=== PATIENT | female | born 1995 | race Caucasian/White ===

== ENCOUNTER → 2017-08-28 | Day surgery (SDC) | payer BC ==
[2017-08-22 08:05] VITALS: Ht 177.8 cm; Wt 81.8 kg
[~2017-08-28] VITALS: Ht 177.8 cm; Wt 81.8 kg
[~2017-08-28] MED LIST: AMPH20TA2 PO; ATROPINE SULFATE 0.1 MG/ML 5ML SYR IV PRN; CEFAZOLIN 2000 MG/60 ML D5W IV SCH; DEXAMETHASONE SOD INJ 4 MG/ML VIAL ONE; EpINEphrine HCL INJ 1 MG/ML 5ML SYRINGE ONE; FENTANYL CITRATE INJ 50 MCG/1 ML 2 ML VIAL ONE; HYDROCODONE/ACETAMOPHEN 5/325MG TAB PO PRN; HYDROmorphone INJ 1 MG/ML SYR ONE; KETAMINE HCL INJ 50 MG/ML 10 ML VIAL ONE; KETOROLAC TROMETHAMINE 30 MG/ML VIAL IV. PRN; LACTATED RINGER'S 1000ML 1,000 ML IV SCH; LEVOIUD; LIDOCAINE HCL 2% 2 ML VIAL (20MG/ML) ONE; MIDAZOLAM HCL 1 MG/ML 2ML VIAL ONE; ONDANSETRON INJ 2 MG/ML 2 ML VIAL IV PRN; ONDANSETRON INJ 2 MG/ML 2 ML VIAL ONE; OXYCODONE/ACETAMINOPHEN 5-325 TAB PO PRN; PROMETHAZINE HCL INJ 12.5 MG in SODIUM CHLORIDE 0.9% 50ML 50 ML IV PRN; PROPOFOL IV EMULSION 10 MG/ML 20 ML VIAL IV ONE; ROPIVACAINE 0.5% 5 MG/ML 30 ML VIAL ONE; SODIUM CHLORIDE 0.9% 1000ML 1,000 ML IV SCH
--- NOTE | 2017-08-28 08:29 | History & Physical Bridge Note ---
H&P Re-Evaluation Bridge Note: I have examined the patient, reviewed the History & Physical and in the interval since the performance of the History & Physical I have noted the following changes of clinical significance:consent reviewed. No changes noted
--- NOTE | 2017-08-28 08:30 | Discharge Instructions ---
Discharge Instructions Date of Service Aug 28, 2017. Visit Reason for Visit: Right Knee Acl Graft Tear Discharge Discharge Diagnosis / Problem: same Discharge Goals Goal(s): Decrease discomfort, Improve function, Increase independence Medications Stopped Medications Name(s): any bcp Activity Recommendations Activity Limitations: as noted below Lifting Limitations: until after follow-up appointment Exercise/Sports Limitations: until after follow-up appointment May Resume Sexual Activity: after follow-up appointment Shower/Bathe: keep incision dry Driving or Machine Use: Weightbearing Status: Right partial Anesthesia . Post Anesthesia Instructions: If you have had General Anesthesia or IV Sedation: * Do not drive today. * Resume driving when surgeon permits. * Do not make important decisions or sign legal documents today. * Call surgeon for: 1. Temperature elevations greater than 101 degrees F. 2. Uncontrollable pain. 3. Excessive bleeding. 4. Persistent nausea and vomiting. 5. Medication intolerance (nausea, vomiting or rash). * For nausea and vomiting use only clear liquids such as: tea, soda, bouillon until nausea subsides, then gradually increase diet as tolerated. * If you have any concerns or questions, call your surgeon's office. If physician is unavailable and it is an emergency, call 911 or go to the nearest emergency room. . Instructions / Follow-Up Instructions / Follow-Up The following instructions are a useful guide to questions you may have after your Anterior Cruciate Ligament Reconstruction surgery. If you have any questions contact the office at . ACTIVITY RECOMMENDATIONS: * Heavy manual labor is not permitted until 4-6 months after surgery. * Sports are not permitted until 6-9 months after surgery. * Return to activity is individualized. * DRIVING: Driving is not permitted until 3-4 weeks after surgery at a minimum. Please ask your doctor when it is safe to resume driving. If you have an automatic vehicle and your left leg has been operated on, then you may begin driving as soon as you are comfortable and can drive safely. * BATHING: You may shower or sponge-bathe immediately after surgery. The dressing will need to be covered with a plastic bag or plastic wrap until the dressing is changed on the fourth or fifth day after surgery. Once the dressing has been changed on the fourth or fifth day after surgery, you may shower and get the incision wet. * Wash with regular soap and water. * Do not bathe (submerge the incision), soak, swim or use a hot tub until the incision is completely healed over with normal skin and the doctor has given the OK to proceed. * There is no need to apply any ointments, powders or salves to your incision. * Do not apply alcohol or hydrogen peroxide directly to the incision. Diluted peroxide (50:50 mixture with sterile saline) may be used to clean dried blood from around the incision area. WORK/SCHOOL: * You may return to sedentary work or school when you are feeling comfortable. This is usually 3-7 days after surgery. * Expect increased discomfort with increased activity. Continue to elevate and ice the leg as much as possible. DIET: * Resume previous diet. MEDICATIONS: * You will have a prescription for pain medication and an anti-inflammatory medication after surgery. Use the pain pills for severe pain and the anti-inflammatory for less severe pain. * Once the pain pills have run out, try to use the anti-inflammatory. If this is not effective then contact the office for assistance. * The pain medication may cause nausea, constipation and sleepiness. You should see how they affect you before driving or similar activity. * The anti-inflammatory may cause stomach upset and bleeding. If this occurs, let your doctor know immediately . * Some patients may need blood clot prevention. This can be done with either a pill or a simple shot. Your doctor will advise you on when to begin these medications and how to take them. * Do not take aspirin or other anti-inflammatory products (i.e. Advil or Aleve ) if taking blood thinner medication. * Take a stool softener like Colace or a stimulant like Senokot to prevent constipation. SPECIAL CARE INSTRUCTIONS: The following instructions are a useful guide to questions you may have after your surgery. If you have any questions contact the office at . ICE: * You have the option of an ice cooler, gel packs or ice bags. * If you have an ice cooler, refer to the instructions for that device. * If you do not have an ice cooler, then you will need to use ice bags or gel packs. * Do not apply ice directly to the skin. * Use a thin dressing or stockinet between the skin and ice bag. * Apply ice for 20-30 minutes and repeat every 2-4 hours. This is especially important for the first 7-10 days after surgery. * Once the pain improves, use ice as needed. * The ice cooler can be used continuously. ELEVATION: * Keep your leg elevated at or above the level of your heart as much as possible. * Expect some increased discomfort and swelling if you are standing for any length of time. * When lying down, avoid placing anything under your knee. Rather, prop your leg up by placing several pillows under your heel or calf. DRESSING: * Your dressing will be changed at your first therapy appointment approximately 4-5 days after surgery. * Band-Aids, tape strips or gauze may be applied. You may then change your dressing daily. * Always wash your hands prior to touching the incision area. * Reapply dressing followed by the Darryn wrap or Tubi-automobile taillight assembler stockinet, ice cooling pad and then the brace. * Once the stitches are removed, you may leave the wound open to air or cover with an Darryn Bandage or Tubi-automobile taillight assembler stockinet. * If you have been given a white elastic stocking (AUDIE hose), wear as much as possible for the first 1-3 weeks depending on swelling. * Expect some bloody drainage for the first few days after surgery. * Leave the tape strips in place for 5-7 days. * Band-Aids and gauze may be changed daily. CRUTCHES: * You will need to use crutches after surgery. * Until your first doctor's appointment, you must use your crutches at all times when walking and should put no more than 50% of your normal weight on the surgical leg. * After your first doctor's appointment, you may gradually progress to full weight bearing and discontinue crutches as tolerated under the guidance of your therapist. * If you have had a microfracture procedure done, you may be advised to be non- weight bearing for up to 6 weeks. BRACE: * After surgery, you will be placed into a range of motion brace locked with your leg straight. This brace is to be worn at all times when walking (even with the crutches) and sleeping until your first doctors appointment. * The brace may be removed for therapy. * After your first therapy appointment, your therapist will open the brace to allow bending of the knee once your muscles are working better. * Until your first doctor's appointment, you should sleep with your brace locked with your knee fully straight. * If you have chosen to use a functional ACL brace then this brace will be supplied about 2-3 months after your surgery. During that time, you will attend therapy 2- 3 times per week. You will also need to do daily exercises for range of motion and strength as instructed. PROBLEMS/QUESTIONS: * If you have any problems such as severe pain, numbness, tingling or high fevers or if you have any questions, please contact the office at [phone]. * It is not uncommon to have some numbness and tingling after the surgery especially if you have had a nerve block done. This should gradually improve over the first 1- 2 days. If this persists longer or worsens then contact the office. FOLLOW UP VISIT: * If not already scheduled, please call the office at to schedule follow-up appointments for approximately 10 days and one month after surgery followed by monthly appointments thereafter. Diet Recommendations Recommended Home Diet: resume previous diet Procedures Procedures Performed: see op note Pending Studies Studies pending at discharge: no Medical Emergencies . Who to Call and When: Medical Emergencies: If at any time you feel your situation is an emergency, please call 911 immediately. . Non-Emergent Contact Non-Emergency issues call your: Specialist Call Non-Emergent contact if: wound has increased drainage, wound has increased redness, wound has increased pain . . "Provider Documentation" section prepared by Davonte Jang. .
--- NOTE | 2017-08-28 11:08 | [facility] Post Operative Brief Note ---
Immediate Operative Summary Operative Date Aug 28, 2017. Pre-Operative Diagnosis Left Knee Anterior Cruciate Ligament Graft Tear Post-Operative Diagnosis Same Procedure(s) Performed Left Knee Arthroscopic Anterior Cruciate Ligament Reconstruction With Achilles Allograft, Hardware Removal Surgeon Dr. Jang Softball Umpire Surgeon(s) Dr. Felix Real, Fellow; Bimal Mcclendon PA-C Estimated Blood Loss 50 ml Findings graft tear Fluids (cc crystalloids) 1000cc Specimens None Drains none Anesthesia LMA/block Complication(s) None Disposition Recovery Room / PACU
[2017-08-28] MEDS: FENTANYL CITRATE INJ 50 MCG/1 ML 2 ML VIAL IV PRN ×4 (11:18→11:50)
[2017-08-28] MEDS: HYDROmorphone INJ 0.5 MG/0.5 ML SYR IV PRN ×2 (12:00→12:09)
--- NOTE | 2017-08-28 12:22 | OPERATIVE REPORT ---
DATE OF OPERATION: 08/28/2017 SURGEON: Dr. Davonte Jang. RETAIL PRICING COORDINATOR: Addie. SECOND PUBLIC RELATIONS SUPERVISOR: Harpreet Mcclendon PA-C. PREOPERATIVE DIAGNOSIS: Anterior cruciate ligament graft tear. POSTOPERATIVE DIAGNOSIS: Same. OPERATION PERFORMED: Revision ACL reconstruction with Achilles tendon allograft per patient request. PERIOPERATIVE SITUATION: Medically cleared female who has instability to her knee, also describes some type of patellar irritation and feeling a bit giving way. Preoperative assessment was consistent with anterior cruciate ligament graft tear and no other findings in the posterolateral corner, posteromedial corner, PCL or in the patellofemoral joint. OPERATION: Revision ACL reconstruction with Achilles allograft. PROCEDURE IN DETAIL: The patient appropriately identified, site verified, consent verified, 2 grams of Ancef confirmed as being given. The knee was examined, revealing no patellofemoral instability, had stable medial and lateral collateral ligaments, stable posteromedial and posterolateral corner, stable PCL, positive Marine, positive pivot shift. Dial test was negative. Leg was then prepped and draped in usual routine fashion. Tourniquet inflated to 275 mmHg for a total of about 50 minutes. The old incision was utilized. Blunt dissection carried down to the anteromedial tibia. The tibial fixation device removed. The knee was then scoped through an inferomedial, inferolateral portal. The medial compartment, the lateral compartment had healthy menisci, healthy articular surfaces. Patellofemoral joint tracked well and had no major articular disease. There were no loose bodies identified. The ACL was completely torn. There was free suture in the joint. This was detached from the graft and flipping around, this was trimmed. The tibial tunnel was then made, starting with 8 mm drill bit and enlarged to a 10. It was placed medial and posterior to the previous tunnel and had no problems. It was then debrided of all tissue. The limited notchplasty was then performed. The sutures were removed and then the transtibial guide placed and was in appropriate position, it was drilled with a 7 mm, 8 mm, 9 mm, 10 mm drill bit. Appropriate tunnel was made and there was a good back wall, all debris removed. Graft was then fashioned out of Achilles allograft with a TightRope fixation on the bone block and temporary suture fixation on the soft tissue part, the graft was then passed. It went through nicely, secured nicely to the cortex with shuttle end of the joint with good tension and then with the knee at about 10 degrees of flexion, it was fixed to the tibia using the [employer] WasherLoc system which was repaired prior to passing the graft. 16 mm washer and a 48 mm cortical screw with excellent purchase was utilized. The graft was secured well. Repeat Marine, pivot shift, and anterior drawer tests were normal and inspection of the graft arthroscopically revealed no impingement and good tension. The wound was then irrigated. The tourniquet was deflated again at about 50 minutes. The portals were closed with 3-0 nylon, the incision site with 2-0 Vicryl and 3-0 horizontal Prolene mattress sutures. The patient was then appropriately dressed with Xeroform, 4 x 4 gauze, ABD pads, Webril, double 6-inch Darryn bandage, and range of motion brace locked at 0 degrees. ESTIMATED BLOOD LOSS: 50 mL. CRYSTALLOID: 1000 mL. SUMMARY OF IMPLANTS: Ar[employer]rex TightRope, one was wasted, one was implanted. Achilles tendon allograft, drill pin, ACL TightRope used temporarily. Extended Sharif WasherLoc size 16 and a 48 mm cortical screw. DVT prophylaxis will be with aspirin. I attest to the content of the Intraoperative Record and any orders documented therein. Any exception s are noted below.
--- NOTE | 2017-08-28 13:12 | Anesthesia Progress Nt - [facility] ---
Anesthesia Post Op Note Date & Time Aug 28, 2017 at 13:12 Vital Signs Vital Signs Past 12 Hours Date Time Temp Pulse Resp B/P (MAP) Pulse Ox O2 Delivery O2 Flow Rate FiO2 08/28/17 12:25 36.5 76 16 128/68 (88) 95 Room Air 08/28/17 12:16 98 10 08/28/17 12:16 97 10 132/87 71 08/28/17 12:15 134/102 08/28/17 12:13 102 13 08/28/17 12:13 104 13 100 08/28/17 12:10 144/92 08/28/17 12:08 101 14 08/28/17 12:08 99 14 100 08/28/17 12:05 126/91 08/28/17 12:05 37.5 94 12 126/91 99 Room Air 08/28/17 12:03 86 7 100 08/28/17 12:03 88 7 08/28/17 12:00 128/91 08/28/17 11:58 92 14 08/28/17 11:58 96 14 100 08/28/17 11:57 130/91 08/28/17 11:55 152/100 08/28/17 11:53 103 13 99 08/28/17 11:53 101 13 08/28/17 11:50 141/98 08/28/17 11:48 103 13 08/28/17 11:48 105 13 100 08/28/17 11:45 118/81 08/28/17 11:43 90 6 100 08/28/17 11:43 90 6 08/28/17 11:40 130/79 08/28/17 11:38 91 7 08/28/17 11:38 91 7 100 08/28/17 11:37 97 7 100 08/28/17 11:37 94 7 08/28/17 11:35 138/87 08/28/17 11:32 102 10 100 08/28/17 11:32 101 10 08/28/17 11:30 131/91 08/28/17 11:27 103 10 100 08/28/17 11:27 104 10 08/28/17 11:25 148/91 08/28/17 11:22 105 11 100 08/28/17 11:22 107 11 08/28/17 11:20 143/87 08/28/17 11:17 108 7 100 08/28/17 11:17 108 7 08/28/17 11:15 142/87 08/28/17 11:12 123 16 100 08/28/17 11:12 123 16 08/28/17 11:10 132/85 08/28/17 11:08 143/88 08/28/17 11:07 36.8 112 12 143/88 99 Diffusion Mask 6 08/28/17 11:07 114 95 08/28/17 11:07 114 08/28/17 08:50 0 08/28/17 08:45 85 08/28/17 08:45 85 12 107/76 100 08/28/17 08:43 122/87 08/28/17 08:40 70 20 100 08/28/17 08:40 67 08/28/17 08:35 73 0 08/28/17 08:30 68 0 96 08/28/17 08:30 69 08/28/17 08:25 69 0 96 08/28/17 08:25 70 08/28/17 08:20 65 0 08/28/17 08:15 77 0 08/28/17 08:10 81 0 08/28/17 08:05 78 0 08/28/17 07:44 36.8 75 16 110/74 (86) 98 Room Air Notes Mental Status: alert / awake / arousable, participated in evaluation Pt Amnestic to Procedure: Yes Nausea / Vomiting: adequately controlled Pain: adequately controlled Airway Patency, RR, SpO2: stable & adequate BP & HR: stable & adequate Hydration State: stable & adequate Anesthetic Complications: no major complications apparent
[2017-08-28 13:15] VITALS: BP 117/75; PULSE 97; O2SAT 97
== END | disposition home or self-care (01) ==
LOC: X.SURG 07:30
PROVIDERS: ATTEND Physical Medicine & Rehabilitation Sports Medicine
DX: T84.89XA Other specified complication of internal orthopedic prosthetic devices, implants and grafts, initial encounter (principal); Y83.1 Surgical operation with implant of artificial internal device as the cause of abnormal reaction of the patient, or of later complication, without mention of misadventure at the time of the procedure; M23.52 Chronic instability of knee, left knee; Z98.890 Other specified postprocedural states; F90.9 Attention-deficit hyperactivity disorder, unspecified type

== ENCOUNTER → 2017-10-08 | Outpatient (CLI) | payer BC, OTHER ==
[~2017-10-08] MED LIST changes: -ATROPINE SULFATE 0.1 MG/ML 5ML SYR IV PRN; -CEFAZOLIN 2000 MG/60 ML D5W IV SCH; -DEXAMETHASONE SOD INJ 4 MG/ML VIAL ONE; -EpINEphrine HCL INJ 1 MG/ML 5ML SYRINGE ONE; -FENTANYL CITRATE INJ 50 MCG/1 ML 2 ML VIAL ONE; -HYDROCODONE/ACETAMOPHEN 5/325MG TAB PO PRN; -HYDROmorphone INJ 1 MG/ML SYR ONE; -KETAMINE HCL INJ 50 MG/ML 10 ML VIAL ONE; -KETOROLAC TROMETHAMINE 30 MG/ML VIAL IV. PRN; -LACTATED RINGER'S 1000ML 1,000 ML IV SCH; -LIDOCAINE HCL 2% 2 ML VIAL (20MG/ML) ONE; -MIDAZOLAM HCL 1 MG/ML 2ML VIAL ONE; -ONDANSETRON INJ 2 MG/ML 2 ML VIAL IV PRN; -ONDANSETRON INJ 2 MG/ML 2 ML VIAL ONE; -OXYCODONE/ACETAMINOPHEN 5-325 TAB PO PRN; -PROMETHAZINE HCL INJ 12.5 MG in SODIUM CHLORIDE 0.9% 50ML 50 ML IV PRN; -PROPOFOL IV EMULSION 10 MG/ML 20 ML VIAL IV ONE; -ROPIVACAINE 0.5% 5 MG/ML 30 ML VIAL ONE; -SODIUM CHLORIDE 0.9% 1000ML 1,000 ML IV SCH
== END | disposition home or self-care (01) ==
LOC: C.RDSM 10:25
PROVIDERS: ATTEND Physical Medicine & Rehabilitation Sports Medicine
DX: Z09 Encounter for follow-up examination after completed treatment for conditions other than malignant neoplasm (principal); S83.512S Sprain of anterior cruciate ligament of left knee, sequela; X58.XXXA Exposure to other specified factors, initial encounter